=== PATIENT | female | born 1950 | race Caucasian/White ===

== ENCOUNTER 2022-04-25 18:55 | Emergency (ER) | payer MEDICARE ==
[2022-04-25] MEDS ORDERED: Lidocaine 1% PF 5 ML VIAL ONE (19:24)
[2022-04-25] MEDS ORDERED: Boostrix 0.5 ML (Tdap) VIAL ONE (19:24)
== END 2022-04-25 21:04 | disposition home or self-care (01) ==
LOC: BURERS 18:55
DX: S61.213A Laceration without foreign body of left middle finger without damage to nail, initial encounter (principal); I10 Essential (primary) hypertension; E78.00 Pure hypercholesterolemia, unspecified; X58.XXXA Exposure to other specified factors, initial encounter; Z23 Encounter for immunization
CPT/HCPCS: 12001; 90471; 90715

== ENCOUNTER 2022-05-02 16:37 | Outpatient (CLI) | payer MEDICARE | END 2022-05-02 16:38 | disposition home or self-care (01) | LOC: BURRAD 16:37 | PROVIDERS: ATTEND Family Medicine | DX: M25.551 Pain in right hip (principal); M25.561 Pain in right knee; M25.562 Pain in left knee ==